=== PATIENT | male | born 1980 | race Caucasian/White ===

== ENCOUNTER 2024-06-07 23:16 | Emergency (ER) | payer OTHER ==
[~2024-06-07] VITALS: Ht 170.2 cm; Wt 86.2 kg
[~2024-06-07 23:16] MED LIST: ALBU90OI INH; AMOX500 PO; HYDACE5 PO
[2024-06-07 23:28] VITALS: BP 164/117
[2024-06-08] MEDS ORDERED: Cephalexin Monohydrate 500 MG Cap PO ONE (00:10)
[2024-06-08] MEDS ORDERED: CEPH500 PO (00:12)
== END 2024-06-08 00:20 | disposition home or self-care (01) ==
LOC: ER 23:16
DX: L03.114 Cellulitis of left upper limb (principal)
CPT/HCPCS: 99283; A9270

== ENCOUNTER 2024-06-23 11:54 | Day surgery (SDC) | payer OTHER ==
[~2024-06-23] VITALS: Ht 170.2 cm; Wt 88.2 kg
[~2024-06-23 11:54] MED LIST changes: +CEPH500 PO; +Midazolam HCl 1MG / ML 2ML Vial ONE; +propofoL 20 ML IV ONE
[2024-06-23] MEDS ORDERED: CeFAZolin Sodium 2,000 MG VIAL ONE (12:12)
[2024-06-23] MEDS ORDERED: Lactated Ringer's 1,000 ML IV ONE (12:44)
[2024-06-23] MEDS ORDERED: Tranexamic Acid 100 ML IV ONE (12:48)
--- NOTE | 2024-06-23 13:22 | NUR ---
06/23/24 [address] PRATHER: PRP ORDERED. LUCIUS RN, HELPING GET LAB.
[2024-06-23] MEDS ORDERED: FentaNYL Citrate 50 MCG/ML 2 ML Injection ONE (13:38)
[2024-06-23] MEDS ORDERED: Ondansetron HCl 2 MG / ML 2ML Vial ONE (13:48)
[2024-06-23] MEDS ORDERED: Dexamethasone Sod Phos 10 MG/ML 1ML VIAL ONE (13:48)
[2024-06-23] MEDS ORDERED: Ketorolac Tromethamine 30mg Vial ONE (13:49)
[2024-06-23] MEDS ORDERED: Bupivacaine 0.5% Inj 50 ML Vial (NON CHARGE) INJ ONE (14:24)
--- NOTE | 2024-06-23 14:54 | NUR ---
06/23/24 0333 Blanca Mai PT DENIES PAIN/NAUSEA, VSS, ON RA. NO VISIBLE SIGNS OF DISTRESS NOTED. PT STATES READINESS TO EAT. PT READY FOR TRANSFER TO SDU.
--- NOTE | 2024-06-23 15:06 | NUR ---
06/23/24 1506 Blanca Mai PT UP TO RECLINER, PROPER USE OF PIVOT TRANSFER TO KEEP LLE NWB. PT TOLERATING PO LIQUIDS W/O COMPLAINT. PT STATES PAIN TO LLE 4-5/10 & TOLERABLE, PT DENIES NAUSEA. VS AT PREOP BASELINE. LLE ELEVATED & ICED. NO VISIBLE SIGNS OF DISTRESS NOTED.
[2024-06-23 15:10] VITALS: BP 140/99
[2024-06-23] MEDS ORDERED: OxyCODONE HCL 5 MG TAB ONE (15:49)
== END 2024-06-23 15:58 | disposition home or self-care (01) ==
LOC: ORSCSDS 11:54
PROVIDERS: Orthopaedic Surgery Sports Medicine
PROC: 0LMR0ZZ Reattachment of Left Knee Tendon, Open Approach (ICD-10-PCS; principal; 2024-06-23 13:15)
DX: M76.52 Patellar tendinitis, left knee (principal); S86.812A Strain of other muscle(s) and tendon(s) at lower leg level, left leg, initial encounter; I10 Essential (primary) hypertension; F41.9 Anxiety disorder, unspecified; F32.A Depression, unspecified; F17.210 Nicotine dependence, cigarettes, uncomplicated; Y93.67 Activity, basketball
CPT/HCPCS: A9270; C1713; J0690; J1100; J1885; J2250; J2405; J2704; J3010